=== PATIENT | male | born 1965 | race Caucasian/White ===

== ENCOUNTER 2016-03-20 20:39 | Emergency (ER) | payer OTHER ==
[~2016-03-20] VITALS: Ht 162.6 cm; Wt 72.7 kg
[~2016-03-20 20:39] MED LIST: AZIT250T4 PO; BUPR-97 PO; HYDR-4003 PO; LEVO100T6 PO; PROP60CA8 PO
[2016-03-20 20:41] VITALS: BP 139/85; PULSE 128; RESP 20; O2SAT 93
--- NOTE | 2016-03-20 22:10 | ED.REPORT ---
HPI-Abd Pain F 2 and Over Date of Service Mar 20, 2016 ED Provider: Allan Mcghee MD Nursing Notes Stated Complaint: COUGH, FEVER, CONJESTION Chief Complaint: FLU/Cold Symptoms Nursing Notes Reviewed: Yes Allergies: Coded Allergies: Penicillins (Verified Allergy, Severe, hives, 06/28/15) Scheduled Azithromycin (Zithromax (Z-Edangelo)) 250 Mg Tablet 250 MG PO DAILY Take two tablets by mouth on day 1, then take one tablet daily on days 2 through 5. Bupropion ER (Wellbutrin XL) 150 Mg Tab.er.24h 450 MG PO DAILY Levothyroxine (Levothyroxine) 100 Mcg Tablet 100 MCG PO DAILY Propranolol ER (Inderal LA) 60 Mg Capsule 60 MG PO BID Scheduled PRN Hydrocodone-Acetaminophen 5-325 mg (Hydrocodone-Acetaminophen 5-325 mg) 1 Each Tablet 1 TABLET PO Q4H PRN PRN For Pain General Time Seen by MD: 22:08 Past Medical History Smoking History Never Smoker Physical Exam Initial Vital Signs Vital Signs (First) Date Time Temp Pulse Resp B/P Pulse Ox O2 Delivery O2 Flow Rate FiO2 03/20/16 20:41 38.2 128 20 139/85 93 Discharge & Departure Referrals: OTHER,PHYSICIAN (PCP) Allan Mcghee MD Mar 20, 2016 22:10
[2016-03-20] MEDS ORDERED: Albuterol 2.5 mg/3 mL Inhalation Solution NEB ONE (22:15)
[2016-03-20] MEDS ORDERED: HYDROcodone-APAP 7.5-325 mg/15 mL 15 mL Solution PO ONE (22:15)
[2016-03-20] MEDS ORDERED: Albuterol-Ipratropium 3 mL Inhalation Solution NEB ONE (22:15)
--- NOTE | 2016-03-20 22:31 | ED.REPORT ---
HPI-URI / Cough / Cold Date of Service Mar 20, 2016 ED Provider: Allan Mcghee MD Patient is a 50 year old male who presents to the ED with flu-like symptoms for the past 2 weeks, worse for the past 2 days. He reports associated fever, productive cough, wheezing, chest pain, sore throat, and myaglias. He is febrile in the ED at 38.2C. The patient states that the severity of his symptoms have waxed and waned, he believed he would simply get better with time. Patient reports hemoptysis today. He is unable to keep down food and liquids due to his cough. He did not receive his influenza shot this year. Nursing Notes Stated Complaint: COUGH, FEVER, CONJESTION Chief Complaint: FLU/Cold Symptoms Nursing Notes Reviewed: Yes Allergies: Coded Allergies: Penicillins (Verified Allergy, Severe, hives, 06/28/15) Scheduled Azithromycin (Zithromax (Z-Deangelo)) 250 Mg Tablet 250 MG PO DAILY Take two tablets by mouth on day 1, then take one tablet daily on days 2 through 5. Azithromycin (Zithromax (Z-Deangelo)) 250 Mg Tablet 250 MG PO DIRECTED Take two tablets by mouth on day 1, then take one tablet daily on days 2 through 5. Bupropion ER (Wellbutrin XL) 150 Mg Tab.er.24h 450 MG PO DAILY Cefuroxime Axetil (Cefuroxime) 500 Mg Tablet 500 MG PO BID Levothyroxine (Levothyroxine) 100 Mcg Tablet 100 MCG PO DAILY Propranolol ER (Inderal LA) 60 Mg Capsule 60 MG PO BID Scheduled PRN Benzonatate (Benzonatate) 200 Mg Capsule 200 MG PO TID PRN PRN For Cough Hydrocodone-Acetaminophen 5-325 mg (Hydrocodone-Acetaminophen 5-325 mg) 1 Each Tablet 1 TABLET PO Q4H PRN PRN For Pain General Time Seen by MD: 22:08 Chief Complaint Cough, productive..., Fever Hx Obtained From: Patient Arrived By: Walk-in Onset Occurred: More than a week ago... (2 weeks) Symptom Duration: Since onset Location: : Chest Severity: Current: Moderate Severity: Maximum: Severe Context: Immunization Status Immunizations Not Up to Date: Seasonal influenza Recent Healthcare: No recent doctor visit, No recent hospitalization Similar Sx Previous: No Past Medical History Past Medical History Hyperthyroid Anxiety PTSD chronic pain syndrome sleep apnea Past Surgical History Umbillical hernia repair Rotator cuff left Smoking History Never Smoker Social History Alcohol Use: Denies alcohol use Drug Use: Denies drug use Other Social History: Good social support, , Local resident Ambulatory Status Independent Review of Systems Constitutional: Reports: Fever Ears / Nose / Throat: Reports: Sore throat Respiratory: Reports: Hemoptysis, Non-productive cough, Wheezing Complete sys rev & neg: except as marked. Cardiovascular: Reports: Chest pain Musculoskeletal: Reports: Myalgia Physical Exam Initial Vital Signs Vital Signs (First) Date Time Temp Pulse Resp B/P Pulse Ox O2 Delivery O2 Flow Rate FiO2 03/20/16 20:41 38.2 128 20 139/85 93 03/21/16 02:21 Room Air Initial VS: Reviewed, Vital signs abnormal Extremities: Vascular intact, Neuro intact Neurologic: Alert, Oriented, Nonfocal Psychiatric: Mood/affect normal, Behavior normal, Normal thought content General/Constitutional: Awake, Alert Distress / Hydration: Positive: Distress mild, Distress moderate Appearance / Presentation: Positive: Ill appearing/not toxic, In pain ENT: Airway patent, Pharynx NL, Tympanic membs NL Respiratory / Chest: No rales, No rhonchi Wheezing / Retractions: Positive: Wheezing expiratory (with cough) any deep breathing causes cough Head / Eyes: Normocephalic, PERRL, Conjunctiva NL Neck: Supple, Full range of motion, No adenopathy Cardiovascular: Regular rhythm, Heart sounds NL Heart Rate / Rhythm: Positive: Tachycardia Skin: Warm, Dry Color / Condition: Negative: Diaphoresis present Interpretation & Diagnostics Interpretation & Diagnostics: POSITIVE FOR FLU A NEGATIVE FOR FLU B Lab Results Interpretation Result Diagram: 03/20/16224403/20/162244 Test 03/20/16 22:45 White Blood Count 3.9th/mm3 (3.8-10.1) Red Blood Count 4.90mil/mm3 (4.40-5.80) Hemoglobin 16.0g/dL (13.8-17.2) Hematocrit 45.7% (41.0-50.0) Mean Corpuscular Volume 93.3fL (81-100) Mean Corpuscular Hemoglobin 32.7pg (27.0-35.0) Mean Corpuscular Hemoglobin Concent 35.0% (32.0-37.0) Red Cell Distribution Width 13.2% (12.3-15.4) Platelet Count 211bil/L (150-400) Neutrophils (%) (Auto) 83.7% (40-74) Lymphocytes (%) (Auto) 7.1% (14-46) Monocytes (%) (Auto) 7.9% (4-12) Eosinophils (%) (Auto) 0.3% (0-5) Basophils (%) (Auto) 0.5% (0-3) D-Dimer < 0.5mg/L (<0.50) Sodium Level 138mEq/L (134-144) Potassium Level 4.1mEq/L (3.5-5.2) Chloride Level 101mEq/L (97-108) Carbon Dioxide Level 21mmol/L (18-29) Blood Urea Nitrogen 13mg/dL (6-24) Creatinine 1.00mg/dL (0.76-1.27) Estimat Glomerular Filtration Rate 84mL/min (>59) Glucose Level 112mg/dL (60-99) Calcium Level 9.0mg/dL (8.5-10.1) Magnesium Level 2.4mg/dL (1.6-2.6) Total Bilirubin 0.6mg/dL (0.0-1.2) Aspartate Amino Transf (AST/SGOT) 22U/L (0-50) Alanine Aminotransferase (ALT/SGPT) 29U/L (0-44) Alkaline Phosphatase 61U/L (25-150) Total Protein 7.5g/dL (6.4-8.4) Albumin 4.5g/dL (3.4-5.0) Hold Juares Top Tube Received (Received) X-Ray Chest Interpretation Chest Xray Interpretation: Impression: Left lower lobe infiltrate. View: AP & lat Interpretation / Wet Read by: Wet read ED physician Re-Eval/Medical Decision Med Decision/Clinical Course 50-year-old male who has been sick with upper respiratory symptoms for the last couple weeks. Over the last 2 days he is worsened and now has intractable cough. Chest x-ray shows left lower lobe pneumonia. Flu swab is positive. He was given IV Rocephin and IV azithromycin to be followed at home by oral azithromycin and oral cefuroxime. He was also given Tessalon and ondansetron. He will follow-up with his primary doctor in the next day or 2. Return to the emergency room over the weekend if things worsen. Source of Hx: Old records Re-Evaluation/Progress #1: Time of Eval: 23:06 Re-Evaluation/Progress Note: Informed the patient that he has pnuemonia. He is improved after breathing treatment. Will draw labs and continue workup. Re-Evaluation/Progress #2: Time of Eval: 01:35 Patient Status: Condition improved Re-Evaluation/Progress Note: Patient is positive for Flu A. Discussed lab results. He will receive antibiotics in the ED. Re-Evaluation/Progress #3: Time of Eval: 02:46 Re-Evaluation/Progress Note: Antibiotics are complete and patient is improved. Patient understands and agrees with the plan to be discharged home. Discharge instructions and follow-up discussed. All questions were addressed. Return to the ED warnings given. Consultation : Referral / Consult Name: Giovana Hernandez DO Consulted With: Hospitalist Call Returned at: 23:50 News Clerk: Agrees with eval, Agrees with plan Note: Consulted with Dr. Hernandez about the patients case. Discussed antibiotic converage. Counseled Regarding: Diagnosis, Lab results, Need for follow-up, When/why to return to ED Discharge & Departure Impression: Primary Impression: Left lower lobe pneumonia Pneumonia type: due to unspecified organism Qualified Code: J18.9 - Pneumonia, unspecified organism Additional Impression: Influenza due to influenza A virus Disposition: Home Discharge Condition All VS Reviewed: Yes Condition: Stable Patient Instructions: Community-acquired Pneumonia (ED), Influenza (ED) Additional Instructions: Azithromycin 250 mg daily for 4 more days, prescription written.Cefuroxime 500 mg by mouth twice a day, #20 prescription written. Tessalon (benzonatate) 200 mg by mouth 3 times a day when necessary cough, #30 prescription written. Over- the-counter cough medication may be helpful. Tylenol and/or ibuprofen as needed for discomfort. See your regular doctor if you are not improving or return to the emergency room over the weekend if he get worse. Call me at [phone] between the hours of 9 PM and 6 AM if you have any concerns or questions for the next few days. Referrals: OTHER,PHYSICIAN (PCP) Scribe Attestation Portions of this note were transcribed by Yoselin Malave. I, Dr. Mcghee, personally performed the history, physical exam and medical decision-making; I reviewed and confirmed the accuracy of the information in the transcribed note. Signed by: Saad Nunez, 03/21/2016 [id number] copies to: OTHER,PHYSICIAN Allan Mcghee MD Mar 20, 2016 22:31 Yoselin Malave Mar 20, 2016 22:33
[2016-03-20] MEDS ORDERED: Azithromycin Inj 500 MG in Dextrose 5% w/Vial Mate 250 ML IV ONE (23:00)
[2016-03-20] MEDS ORDERED: cefTRIAXone Inj 2,000 MG in IV Premix 1 EACH IV ONE (23:00)
[2016-03-20 23:21] LABS: BASOPHILS % (AUTO) 0.5 % (0-3); EOSINOPHILS % (AUTO) 0.3 % (0-5); MONOCYTES % (AUTO) 7.9 % (4-12); Mean Corpuscular Hemoglobin 32.7 pg (27.0-35.0); Mean Corpuscular Volume 93.3 fL (81-100); NEUTROPHILS % (AUTO) 83.7 % (40-74); Platelet Count 211 bil/L (150-400)
[2016-03-20 23:32] LABS: Magnesium 2.4 mg/dL (1.6-2.6)
[2016-03-21] MEDS ORDERED: Alum-Mag Hydrox-Simeth 30 mL Suspension PO ONE (01:50)
[2016-03-21 02:21] VITALS: PULSE 100; RESP 22; O2SAT 96
[2016-03-21] MEDS ORDERED: BENZ200C44 PO (02:42)
[2016-03-21] MEDS ORDERED: AZIT250T4 PO (02:42)
[2016-03-21] MEDS ORDERED: CEFU500T61 PO (02:42)
[2016-03-21 03:36] VITALS: BP 132/77; PULSE 126; RESP 16; O2SAT 93
--- NOTE | 2016-03-21 07:23 | DRSVH ---
PROCEDURE: X-RAY CHEST, TWO VIEWS ([id number]) INDICATIONS: cough, fever, pleuritic chest pain TECHNIQUE: 2 views of the chest were acquired. COMPARISON: None. FINDINGS: Surgical changes and devices: Edgard sutures are projected over the proximal right humerus. Lungs and pleura: Lung volumes are low. Mild radiopacities are present at the lung bases bilaterally. No pleural effusion or pneumothorax. Mediastinum: Mediastinal contours are normal. Heart size is normal. Bones and chest wall: No suspicious bony abnormalities. Soft tissues appear unremarkable. IMPRESSION: Probable basilar atelectasis in the setting of low lung volumes, although mild pulmonary consolidation could also be considered. Dictated by: Ashely Jimenez M.D. on 03/21/2016 at 7:20 Approved by: Ashely Jimenez M.D. on 03/21/2016 at 7:21
== END 2016-03-21 02:49 | disposition home or self-care (01) ==
LOC: SED 20:39
DX: J18.9 Pneumonia, unspecified organism (principal); J10.89 Influenza due to other identified influenza virus with other manifestations; R50.9 Fever, unspecified; R04.2 Hemoptysis; M79.1 Myalgia; E05.90 Thyrotoxicosis, unspecified without thyrotoxic crisis or storm; G89.4 Chronic pain syndrome; Z88.0 Allergy status to penicillin
CPT/HCPCS: 36415; 71020; 80053; 83735; 85025; 85379; 87040; 87804; 93005; 94664; 96365; 96375; 99285; J0456; J0696; J7613; J7620